=== PATIENT | male | born 1965 | race Caucasian/White ===

== ENCOUNTER → 2020-04-20 | Outpatient (CLI) | payer OTHER | LOC: CAT 15:50 | DX: Z13.6 Encounter for screening for cardiovascular disorders (principal); I25.10 Atherosclerotic heart disease of native coronary artery without angina pectoris; E78.00 Pure hypercholesterolemia, unspecified ==

== ENCOUNTER → 2020-05-15 | Outpatient (CLI) | payer BC ==
[~2020-05-15] MED LIST: ADVIL200 M3 PO; AMBIEN 10 MG TA10 MG PO; ASA81BEC PO; HYZAAR 50-12.51 EACH PO; LIPITOR80 MG PO; METFORMIN HCL500 M3 PO; NORCO 10-325 T1 EAC1 PO; PRILOSEC10 MG PO; PROBIOTIC1 EAC7 PO; SPRYCEL100 MG PO; SUPER THERAVIT1 EACH PO; ZYRTEC10 M5 PO
== END ==
LOC: SJCVCIMAG 05-03 09:19
PROVIDERS: ATTEND Internal Medicine Cardiovascular Disease
DX: R07.9 Chest pain, unspecified (principal); I25.10 Atherosclerotic heart disease of native coronary artery without angina pectoris

== ENCOUNTER → 2020-05-17 | Outpatient (CLI) | payer BC ==
[~2020-05-17] VITALS: Ht 182.9 cm; Wt 108.9 kg
[2020-05-17 10:16] VITALS: BP 133/78
[2020-05-17 10:26] LABS: HEMATOCRIT 32.4 % (42.0-52.0); HEMOGLOBIN 10.1 gm/dL (14.0-18.0); MCH 24.1 pg (26.0-34.0); MCHC 31.2 g/dL (28.0-37.0); MCV 77.5 fL (80.0-100.0); RBC 4.18 mil/uL (4.50-6.00); RDW 15.9 % (10.5-14.5); WBC 15.1 thou/uL (4.0-11.0)
[2020-05-17 10:38] LABS: CALCIUM 8.7 mg/dL (8.5-10.1); CREATININE 0.8 mg/dL (0.7-1.3); POTASSIUM 3.5 mmol/L (3.5-5.1)
--- NOTE | 2020-05-17 16:22 | CATHLAB ---
[facility] [place] [address] INVASIVE PROCEDURE REPORT Name: ANN-MARIE SHEPPARD Room #: REG ADAM SaezCamron#: [id number] Admission: 05/17/20 Attend Phys: Ranjan Stark MD, Discharge: Date of : 61 Report #: [id number] THIS REPORT FOR: cc: Jitendra De Paz Louis D. DO Mancuso, Gerald M. MD [facility] ~ APPROVED REPORT Study performed: 05/17/2020 11:08:32 Patient Details Patient Status: Out-Patient Room #: The patient is a 54 year-old male Event Personnel Ranjan Stark Elevator Technician, Maynor Meneses RTR Francy Capellan Nancy RTR, HOSTESS CASHIER Monitor, Clara Salmeron RTR Monitor, Lucia Mays RN chief yeoman Performed Art Access - R femoral artery* Left Heart Cath w/or w/o Coronaries [id number] [facility] Aortogram Abdominal Peripheral Angio 144149 Renal Bilateral Peripheral Angiography 1980931 CVRENALBIL 66110 Initial Mod Sed Same Phys/QHP Gr5y 863818 49504 Mod Sed Same Phys/QHP Ea 351926 Hemostasis w/ Mynx Indication Chest pain Procedure Narrative The Right Groin^ was infiltrated with 1% Lidocaine subcutaneous anesthesia. A PINNACLE 6FR Sheath #[id number] sheath was inserted into the RFA^. Coronary angiography was performed using coronary diagnostic catheters. The right coronary system was accessed and visualized with a 6FR JR 4 #[id number] catheter. The left coronary system was accessed and visualized with a 6FR JL4 #[id number] catheter. The left ventricle was accessed and visualized with a 6FR PIGTAIL STRAIGHT #[id number] catheter. Left ventriculogram was performed in 30 degree projection. An aortogram of the abdominal aorta was performed. Closure device was deployed with a Fr MYNXGRIP 6/7F #[id number]. The patient tolerated the procedure well and there were no complications associated with the procedure. There was no hematoma. Intraoperative Conscious Sedation [facility] [address] [place] [address] INVASIVE PROCEDURE REPORT Name: VALARIEANN-MARIE LARSON Room #: REG [facility] [id number] Admission: 05/17/20 Attend Phys: Ranjan Stark, Discharge: Date of : 61 Report #: [id number] Sedation start time: 12:04 Case end Time: 12>29 Fentanyl 100 mcg Versed 2 mg Fluoro Time: 1.33 minutes Dose: DAP 3603.00 cGycm2 353 mGy Contrast Type and Amount: Omnipaque 140 ml Hemodynamics The aortic pressure is 156/79 mmHg with a mean of 107 mmHg. The left ventricular pressure is 163/9 mmHg with a mean of mmHg. The left ventricular end diastolic pressure is 26 mmHg. Conclusion 1. Normal left jugular size and systolic function EF 60% #2 ostial left main of 30% range otherwise large giving rise to LAD and circumflex #3 LAD with mild irregularities type I stop short of the apex mild diagonal disease. 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 With mild atherosclerotic disease. No flow-limiting no evidence of renal artery stenosis. Recommendations and plan: Continue aggressive risk factor modification. There is no indication for coronary intervention. Etiology of chest pain is noncardiac. <ELECTRONICALLY SIGNED> By: Ranjan Stark MD, FACC 05/17/20 1622 21 21 Ranjan Stark MD, FACC /INF
== END | disposition home or self-care (01) ==
LOC: SJCVCIMAG 07:34
PROVIDERS: ATTEND Internal Medicine Cardiovascular Disease
DX: R07.9 Chest pain, unspecified (principal); I25.10 Atherosclerotic heart disease of native coronary artery without angina pectoris; I70.1 Atherosclerosis of renal artery; I10 Essential (primary) hypertension; E78.5 Hyperlipidemia, unspecified; M54.5 Low back pain; G89.29 Other chronic pain; Z98.890 Other specified postprocedural states; Z79.82 Long term (current) use of aspirin; Z79.899 Other long term (current) drug therapy

== ENCOUNTER → 2020-05-31 | Outpatient (CLI) | payer BC | LOC: RAD 13:06 | PROVIDERS: ATTEND Internal Medicine | DX: R06.00 Dyspnea, unspecified (principal) ==

== ENCOUNTER → 2020-10-01 | Outpatient (CLI) | payer BC | LOC: LAB 09:00 | PROVIDERS: ATTEND Anesthesiology | DX: Z01.812 Encounter for preprocedural laboratory examination (principal); Z20.828 Contact with and (suspected) exposure to other viral communicable diseases ==